=== PATIENT | female | born 1995 | race Caucasian/White ===

== ENCOUNTER → 2016-08-13 | Outpatient (CLI) | payer OTHER ==
--- NOTE | 2016-08-13 11:48 | Discharge Instructions ---
Discharge Instructions Procedure Procedure Date: Aug 13, 2016. Reason for visit: Left Masses/Possible Bx. Discharge Discharge Date: Aug 13, 2016. Discharge Diagnosis: status post breast biopsy Instructions Activity Recommendations: Additional Limitations (see below) Return to School/Work: no limitations Recommended Home Diet: No Limitations Provider Instructions: ACTIVITY RECOMMENDATIONS: * No lifting, pushing, pulling or exercising the affected side for three days. RETURN TO SCHOOL/WORK: * You may return to work/school after the procedure, but do not perform any strenuous activities for 24 to 48 hours. MEDICATIONS: * Tylenol (two 325 mg) every four to six hours if needed for mild pain (if not allergic to Tylenol). DIET: * Resume previous diet. SPECIAL CARE INSTRUCTIONS: * Keep biopsy site dry for 24 hours. May shower after 24 hours, but do not soak (bathe) incision. * May remove Tegaderm (plastic patch) tomorrow AFTER showering. * Leave the steri-strips on for one week. Allow the steri-strips to fall off by themselves. If not off after one week, you may remove them. You may place a Bandaid crosswise over the strips, if desired. * Apply ice 10 minutes on and 10 minutes off as needed. * Wear a bra at bedtime to sleep more comfortably for 2-3 days. * Your referring physician should have the results after approximately 5 to 7 business days. * Call for unusual bleeding, fever, drainage, etc or if you have any questions call during normal business hours or after hours call Dr Velasquez, . FOLLOW UP VISIT: Follow-up with Referring Physician as scheduled. [facility] [employer] Recommendations: Call your doctor if: * Temperature above 101 degrees * Pain not relieved by pain medicine ordered * There is increased drainage or redness from any incision * You have any unanswered questions or concerns. Your Doctors Instructions noted above were prepared by provider Toshia Velasquez. Patient Signature Section: Patient Instructions Signature Page [place] Patient (or Guardian) Signature/Date: I have read and understand the instructions given to me by my caregivers. Caregiver/RN/Doctor Signature/Date: The above-named patient and/or guardian has received patient instructions on this date. + Original Patient Signature Page (only) stays with chart. Please make copy for patient.
--- NOTE | 2016-08-13 12:35 | MAMMOGRAPHY REPORT ---
ULTRASOUND GUIDED BIOPSY LEFT BREAST: 08/13/2016 CLINICAL HISTORY: Hypoechoic left 11:00 breast mass. PATIENT CONSENT: The procedure, risks and benefits were discussed with the patient and informed writ ten consent was obtained. A timeout was performed immediately prior to the procedure. PROCEDURE DESCRIPTION: With ultrasound guidance, aseptic technique, and lidocaine as the local anest hetic (1% lidocaine to anesthetize the skin and 1% lidocaine with epinephrine to anesthetize the angeles per tissues), the mass of concern in the left 11:00 breast was sampled 5 times with a 14-gauge Achie ve biopsy needle. Immediately thereafter, a metallic localizer clip was placed, which could not be placed centrally within the mass due to the inability to traverse the adjacent dense tissue, so the clip was placed at the edge of the mass. Direct pressure was applied to the site immediately post procedure and hemostasis was achieved. The patient tolerated the procedure without complication. S he was given wound care instructions. The specimens were sent to pathology for analysis. COMPARISON: Comparison is made to exam dated: 07/20/2016 ultrasound. IMPRESSION: ULTRASOUND GUIDED BIOPSY Ultrasound-guided core needle biopsy of the left 11:00 breast mass, with clip placement. The patien t will receive pathology results from the [facility]. Toshia Velasquez M.D. /:08/13/2016 12:13:04 Level Designer: Sahara Gonzalez, [facility]
--- NOTE | 2016-08-13 12:35 | MAMMOGRAPHY REPORT ---
ULTRASOUND OF BOTH BREASTS: 08/13/2016 CLINICAL HISTORY: The patient reports a palpable lump in her left breast as well as right breast for a few months. An outside ultrasound was performed which showed a mass in the left 2:00 breast and 11:00 breast (the images are not able to be loaded onto the system to review but the report is avail able). COMPARISON: No prior exams were available for comparison. The outside ultrasound images dated 07/20 were not able to be loaded onto the system to review, however, the report is available. TECHNIQUE: Real-time targeted ultrasound of both breasts was performed. FINDINGS: Real-time, high resolution targeted ultrasound was performed of the area of the palpable lump pointe d out by the patient, in the left 3:00 periareolar region. Sonographically normal dense fibroglandu lar tissue is seen in this region, without evidence of a mass or other suspicious sonographic abnorm ality. Targeted ultrasound of the left 2:00 breast was performed, which shows no suspicious mass or other suspicious sonographic abnormality. In the left breast at 11:00, 2 cm from the nipple, there is a lobulated hypoechoic non-circumscribed mass which measures 1.3 x 0.7 x 1.2 cm. This is indete rminate and ultrasound-guided core needle biopsy is recommended for further evaluation. Targeted ul trasound was also performed of the area of the palpable lump in the right breast pointed out by the patient, in the right 9 to 10:00 periareolar region, which shows sonographically normal tissue witho ut evidence of a mass or other suspicious abnormality. IMPRESSION: ACR BI-RADS CATEGORY 4A: LOW SUSPICION FOR MALIGNANCY - FOLLOW-UP RECOMMENDED 1. No suspicious sonographic abnormality at the site of the palpable lumps in the left 3:00 and rig ht 9 to 10:00 breast. Recommend clinical follow-up. 2. Hypoechoic 1.3 cm mass in the left breast at 11:00. The mass is indeterminate and ultrasound-gu ided core needle biopsy is recommended for further evaluation. This could represent a fibroadenoma or focal fibrocystic changes. 3. No suspicious mass seen within the left 2:00 breast. The patient was verbally notified of the results. Biopsy of the left 11:00 mass was performed immed iately after the ultrasound exam. Toshia Velasquez M.D. /:08/13/2016 12:10:18 Deliver Driver: Toshia Velasquez MD, [facility] BI-RADS Code: ACR BI-RADS Category 4A: Low Suspicion For Malignancy
== END | disposition home or self-care (01) ==
LOC: C.MAMM 10:38
PROVIDERS: ATTEND Obstetrics & Gynecology
DX: N63 Unspecified lump in breast (principal); N60.12 Diffuse cystic mastopathy of left breast; D24.2 Benign neoplasm of left breast